=== PATIENT | male | born 1960 | race Caucasian/White ===

== ENCOUNTER 2023-04-16 18:00 | Emergency (ER) | payer OTHER ==
[~2023-04-16] VITALS: Ht 182.9 cm; Wt 113.0 kg
[~2023-04-16 18:00] MED LIST: CARDIZEM30 MG PO; DILTIAZEM ER120 M2 PO; ELIQUIS5 MG PO; LEVOTHYROXINE25 MCG PO; LISINOPRIL10 MG PO; NORCO 7.5-3251 EACH PO; ULTRAM50 MG PO
[2023-04-16] MEDS ORDERED: HYDROCODON-ACE1 EA11 PO (18:43)
[2023-04-16 18:57] VITALS: BP 146/101
== END 2023-04-16 18:59 | disposition home or self-care (01) ==
LOC: ED 18:00
DX: S90.111A Contusion of right great toe without damage to nail, initial encounter (principal); W20.8XXA Other cause of strike by thrown, projected or falling object, initial encounter; I48.91 Unspecified atrial fibrillation; Z79.01 Long term (current) use of anticoagulants; Z79.899 Other long term (current) drug therapy
CPT/HCPCS: 73660